=== PATIENT | male | born 1995 | race Caucasian/White ===

== ENCOUNTER 2022-11-19 14:18 | Emergency (ER) | payer SELFPAY ==
[~2022-11-19] VITALS: Ht 167.6 cm; Wt 71.8 kg
[2022-11-19 14:41] VITALS: BP 132/80; PULSE 71; RESP 14; TEMP 98.4; O2SAT 97
[2022-11-19] MEDS ORDERED: FLUORESCEIN OPTH STRIP 1 MG OP ONE (15:45)
[2022-11-19] MEDS ORDERED: TETRACAINE HCL/PF 0.5% OPTH 4 ML BTL OP ONE (15:45)
[2022-11-19] MEDS ORDERED: IBUP-1842 PO (16:23)
[2022-11-19] MEDS ORDERED: CIPR5DRO6 OP (16:23)
--- NOTE | 2022-11-19 16:47 | NUR ---
Patient discharged with v/s stable. Written and verbal after care instructions given and explained. Patient alert, oriented and verbalized understanding of instructions. Ambulatory with steady gait. All questions addressed prior to discharge. ID band removed. Patient advised to follow up with PMD. Rx of CIPROFLOXACIN given. Patient educated on indication of medication including possible reaction and side effects. Opportunity to ask questions provided and answered.
== END 2022-11-19 16:46 | disposition home or self-care (01) ==
LOC: MED 14:18
DX: H10.89 Other conjunctivitis (principal); H16.001 Unspecified corneal ulcer, right eye; B96.89 Other specified bacterial agents as the cause of diseases classified elsewhere; Z79.899 Other long term (current) drug therapy
CPT/HCPCS: 99283